=== PATIENT | male | born 1945 | race African-American/Black ===

== ENCOUNTER 2016-09-28 13:50 | Day surgery (SDC) | payer OTHER ==
--- NOTE | ~2016-09-28 | OP ---
Record Of Operation [facility] [address] [place]. [address] NAME: BLANCO FINLEY JR : 47 STATUS : REG [facility]#: [id number] AGE: 71 ADM/REG DATE : 09/28/16 MR#: [id number] REPORT SERV DATE: 09/28/16 DICTATED BY: BRAD JOY DATE: 09/28/16 REPORT STATUS : Draft TRANSCRIBED BY: MODL DATE: 09/28/16 DATE OF PROCEDURE: 09/28/2016 PREOPERATIVE DIAGNOSIS: Left nasopharyngeal mass. Neoplasm, uncertain behavior. POSTOPERATIVE DIAGNOSIS: Left nasopharyngeal neoplasm, uncertain behavior. PROCEDURE: Excisional biopsy of left nasopharynx mass. INDICATIONS: Blanco Finley is a 71-year-old male with a history of nasal congestion, who is shown to have a significant mass in the left side of the nasopharynx that was apparently arising from just superior to the eustachian tube. This did not appear to be an abscess or a mucocele at least in clinic. CT scan showed it to be mostly solid. I counseled him about the risks, benefits, and alternatives of this procedure. The risks include, but are not limited to pain, bleeding, infection, and scarring. He voiced an understanding of those risks and signed a consent form. 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 PROCEDURE IN DETAIL: Mr. Finley was brought to the operating room and positioned on the table in a supine manner. General endotracheal anesthesia was induced. The table was rotated 180 degrees. The patient was prepped and draped in the usual fashion. 0.5 x 3 cotton pledgets containing the 1:1000 epinephrine solution were placed into the nasopharynx bilaterally. These were then removed and we got a good view of the mass and left side of the nasopharynx. This appeared to be pedunculated and arising from an area superior to and posterior to the left eustachian tube orifice or torus tubarius. Using the Roderick-Cut forceps, we came across the base of this and delivered the mass and sent that in its entirety to pathology, fresh. Significant suction electrocautery was performed to help control the bleeding and we also did topical application of epinephrine but at the end of this, there was absolutely no bleeding nor oozing from the biopsy site. Careful inspection of the rest of the nasopharynx revealed no other masses and no nasal polyps, on the either side. Following this, the nose was thoroughly irrigated and all fluids were suctioned out of the nasal cavity and a drip pad was placed. The patient was returned to anesthesia control. He was extubated in the operating room and moved to the recovery room in good condition. FINDINGS: 1. Estimated blood loss 10 mL. 2. Total fluids given 900 mL of Ringer's lactate. 3. 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 EVELIA/OSIRIS Brad Fisher. Record Of Operation [address] [address] NAME: FINLEYBLANCO JEFFRIES : 47 STATUS : REG [facility] PAT#: [id number] AGE: 71 ADM/REG DATE : 09/28/16 MR#: [id number] REPORT SERV DATE: 09/28/16 DICTATED BY: BRAD JOY DATE: 09/28/16 REPORT STATUS : Draft TRANSCRIBED BY: OSIRIS DATE: 09/28/16 Phoebe Joy / [id number] CC: Brad Joy M.D.
[~2016-09-28 13:50] MED LIST: ARICEPT10 PO; ASA5GR PO; CARDURA1 MG PO; CRESTOR5 MG PO; HYGROTON 25 MG25 MG PO; PLAVIX PO; PRIN10 PO
[2016-09-28 15:02] LABS: HEMATOCRIT 32.5 % (40.0-51.0); HEMOGLOBIN 10.7 g/dL (13.6-17.8)
[2016-09-28 15:57] LABS: CALCIUM, SERUM 8.7 MG/DL (8.5-10.4); CHLORIDE, SERUM 107 MMOL/L (96-112); CREATININE 1.77 MG/DL (0.70-1.30); GFR AFRICAN AMERICAN 44 ML/MIN (>=60); GFR NON AFRICAN AMERICAN 38 ML/MIN (>=60); GLUCOSE, SERUM 91 MG/DL (60-99); SODIUM, SERUM 142 MMOL/L (135-148)
[2016-09-28 15:58] LABS: BUN (BLOOD UREA NITROGEN) 24 MG/DL (6-23); CO2 (CARBON DIOXIDE) 31 MMOL/L (24-34)
== END 2016-09-28 20:57 | disposition home or self-care (01) ==
LOC: SDC 13:50
PROVIDERS: Anesthesiology; Otolaryngology
PROC: 09B Ear, Nose, Sinus, Excision (ICD-10-PCS; principal; 2016-09-28 15:00)
DX: J39.2 Other diseases of pharynx (principal); I10 Essential (primary) hypertension; G47.33 Obstructive sleep apnea (adult) (pediatric); Z99.81 Dependence on supplemental oxygen; Z86.73 Personal history of transient ischemic attack (TIA), and cerebral infarction without residual deficits; E11.9 Type 2 diabetes mellitus without complications
CPT/HCPCS: 80048; 85014; 85018; 88305; 88331; 93005; A9270-GY; J0360; J2405; J2710; J3010